=== PATIENT | female | born 1995 | race Two or more races ===

== ENCOUNTER 2023-01-12 02:54 | Emergency (ER) | payer OTHER ==
[~2023-01-12] VITALS: Ht 157.5 cm; Wt 59.1 kg
[2023-01-12 03:00] VITALS: BP 120/68; PULSE 117; RESP 18; TEMP 98.9
== END 2023-01-12 03:40 | disposition home or self-care (01) ==
LOC: EMS 02:54
DX: F41.9 Anxiety disorder, unspecified (principal); Y08.89XA Assault by other specified means, initial encounter; Y93.89 Activity, other specified; Y92.89 Other specified places as the place of occurrence of the external cause; Y99.8 Other external cause status
CPT/HCPCS: 99283